=== PATIENT | female | born 1980 | race Caucasian/White ===

== ENCOUNTER 2020-08-11 13:57 | Emergency (ER) | payer MEDICARE ==
[~2020-08-11] VITALS: Ht 160 cm; Wt 89.1 kg
[2020-08-11 14:16] VITALS: Ht 160 cm; Wt 89.1 kg
[2020-08-11] MEDS ORDERED: COZAAR100 MG PO (14:21)
[2020-08-11] MEDS ORDERED: HYDROCHLOROTH12.5 M1 PO (14:21)
[2020-08-11] MEDS ORDERED: FENOFIBRATE54 MG PO (14:22)
[2020-08-11 15:07] LABS: BASOPHILS 0.2 % (0-2); EOSINOPHILS 1.8 % (0-7); HEMATOCRIT 39.4 % (36.0-48.0); LYMPHOCYTES 22.8 % (15-50); MCH 29.7 pg (26.0-34.0); MEAN PLATELET VOLUME 8.4 fL (7.4-10.4); MONOCYTES 8.7 % (2-11); NEUTROPHILS 66.5 % (40-80); PLATELET COUNT 143 10x3/uL (130-400); RBC 4.38 10x6/uL (4.00-5.40); RDW 14.3 % (11.5-14.5); WBC 5.7 10x3/uL (4.8-10.8)
[2020-08-11 15:11] LABS: INR 0.98 (0.85-1.17); PROTIME 12.9 SECONDS (11.6-15.0)
[2020-08-11 15:12] LABS: APTT 32.1 SECONDS (22.8-39.4)
[2020-08-11 15:20] LABS: CALC OSMOLALITY 271 mosm/kg (275-300); CARBON DIOXIDE 26.3 mmol/L (21.0-32.0); CHLORIDE - SERUM 102 mmol/L (98-107); CREATININE - SERUM 0.8 mg/dL (0.6-1.3); GLUCOSE 92 mg/dL (74-106); POTASSIUM - SERUM 3.5 mmol/L (3.5-5.1); SODIUM 136 mmol/L (136-145); UREA NITROGEN 13 mg/dL (7-18); eGFR NON AFRICAN AMERICAN 84 mL/min (90-120)
[2020-08-11 15:37] LABS: ALBUMIN 3.8 g/dL (3.4-5.0); ALKALINE PHOSPHATASE 56 U/L (30-120); ALT (SGPT) 29 U/L (10-68); BILIRUBIN - TOTAL 0.52 mg/dL (0.2-1.3); CKMB 0.3 U/L (0.0-3.6); CREATINE KINASE 53 UL (21-215); MAGNESIUM - SERUM 2.1 mg/dL (1.8-2.4); PROTEIN - SERUM 7.5 g/dL (6.4-8.2)
[2020-08-11 15:38] LABS: TROPONIN-I < 0.017 ng/mL (0.000-0.060)
[2020-08-11 17:28] VITALS: BP 120/75
== END 2020-08-11 17:45 | disposition home or self-care (01) ==
LOC: D.ER 13:57
PROVIDERS: Emergency Medicine
DX: R07.9 Chest pain, unspecified (principal); R03.0 Elevated blood-pressure reading, without diagnosis of hypertension; I10 Essential (primary) hypertension